=== PATIENT | female | born 1985 | race Caucasian/White ===

== ENCOUNTER 2023-10-21 16:05 | Emergency (ER) | payer SELFPAY ==
[~2023-10-21] VITALS: Ht 167.6 cm; Wt 77.1 kg
[2023-10-21 16:09] VITALS: BP 141/89; PULSE 85; RESP 16; TEMP 98.2; O2SAT 97
[2023-10-22] MEDS ORDERED: CEPH500C2 PO (14:39)
== END 2023-10-21 18:31 | disposition left against medical advice (07) ==
LOC: ER 16:30
DX: M79.641 Pain in right hand (principal); Z53.21 Procedure and treatment not carried out due to patient leaving prior to being seen by health care provider
CPT/HCPCS: 99281

== ENCOUNTER 2023-10-22 12:15 | Emergency (ER) | payer SELFPAY ==
[~2023-10-22] VITALS: Ht 167.6 cm; Wt 72.6 kg
[2023-10-22 12:25] VITALS: O2SAT 100
[2023-10-22] MEDS ORDERED: CEPH500C2 PO (14:39)
[2023-10-22] MEDS: TETANUS, DIPHTHERIA, PERTUSSIS VAC/PF 0.5ML (>10YR OLD) IM ONE (15:07)
[2023-10-22] MEDS: KETOROLAC 30MG/ML VIAL IM ONE (15:53)
[2023-10-22 17:21] VITALS: BP 130/82; PULSE 95; RESP 18; TEMP 98.2
== END 2023-10-22 17:23 | disposition home or self-care (01) ==
LOC: ER 12:15
DX: S61.411A Laceration without foreign body of right hand, initial encounter (principal); X58.XXXA Exposure to other specified factors, initial encounter; Y93.89 Activity, other specified; Y92.89 Other specified places as the place of occurrence of the external cause; Y99.8 Other external cause status
CPT/HCPCS: 99284; 73130; 90715; 90471; 96372; J1885